=== PATIENT | female | born 1990 | race Two or more races ===

== ENCOUNTER 2021-07-06 10:47 | Outpatient (CLI) | payer OTHER ==
[~2021-07-06 10:47] MED LIST: PROVENTIL0.5 ML/2.5 IH; SINGULAIR10 MG PO
== END 2021-07-06 11:00 | disposition home or self-care (01) ==
LOC: NST 10:47
PROVIDERS: ATTEND Specialist
DX: Z34.83 Encounter for supervision of other normal pregnancy, third trimester (principal)

== ENCOUNTER 2021-07-10 21:48 | Inpatient (IN) | payer OTHER ==
[~2021-07-10] VITALS: Ht 154.9 cm; Wt 3.2 kg
[2021-07-10] MEDS ORDERED: FOLIC ACID0.8 M1 PO (22:35)
[2021-07-10] MEDS ORDERED: PRENATAL TABLE1 EAC1 PO (22:35)
== END 2021-07-14 12:20 | disposition home or self-care (01) | DRG 788 ==
LOC: LDR 21:48 → OB/GYN 21:48
PROVIDERS: ADMIT Specialist; ATTEND Specialist
PROC: 3E0P7VZ Introduction of Hormone into Female Reproductive, Via Natural or Artificial Opening (ICD-10-PCS; 2021-07-10)
PROC: 4A1HXFZ Monitoring of Products of Conception, Cardiac Rhythm, External Approach (ICD-10-PCS; 2021-07-10)
PROC: 10907ZC Drainage of Amniotic Fluid, Therapeutic from Products of Conception, Via Natural or Artificial Opening (ICD-10-PCS; 2021-07-11)
PROC: 10D00Z1 Extraction of Products of Conception, Low, Open Approach (ICD-10-PCS; principal; 2021-07-11 16:00)
DX: O65.4 Obstructed labor due to fetopelvic disproportion, unspecified (principal); O62.2 Other uterine inertia; Z3A.39 39 weeks gestation of pregnancy; Z37.0 Single live birth